=== PATIENT | male | born 1975 | race Caucasian/White ===

== ENCOUNTER 2017-11-09 16:19 | Emergency (ER) | payer BC ==
--- NOTE | 2017-11-09 16:36 | PDOC ---
History of Present Illness - General History Source: Patient Exam Limitations: No Limitations - History of Present Illness Initial Comments: 11/09/17 16:36 The patient is a 42 year old male with no significant past medical history who presents to the ED s/p finger laceration earlier today. The patient reports he cut his first left digit with a knife this morning while making omelettes. He states he had to attend a earlier today so he applied super glue to the site of the laceration. Patient states his left first digit injury bled through the glue so he removed the glue and came into the ED. Denies focal numbness, weakness, or tingling. Denies any other symptoms. <Barbara Rivero - Last Filed: 11/09/17 16:36> <Angelica Ruvalcaba - Last Filed: 11/09/17 17:04> - General Chief Complaint: Injury Stated Complaint: LEFT THUMB INJURY Time Seen by Provider: 11/09/17 16:31 Past History <Barbara Rivero - Last Filed: 11/09/17 16:36> <Angelica Ruvalcaba - Last Filed: 11/09/17 17:04> - Past Medical History Allergies/Adverse Reactions: Allergies Allergy/AdvReac Type Severity Reaction Status Date / Time No Known Allergies Allergy Verified 11/09/17 16:20 Home Medications: Ambulatory Orders Cephalexin Monohydrate [Keflex -] 500 mg PO Q6H #28 capsule 11/09/17 Review of Systems - Review of Systems Able to Perform ROS?: Yes Comments:: 11/09/17 16:36 GENERAL/CONSTITUTIONAL: No fever or chills. No weakness. CARDIOVASCULAR: No chest pain or shortness of breath. RESPIRATORY: No cough, wheezing, or hemoptysis. GASTROINTESTINAL: No nausea, vomiting, diarrhea or constipation. GENITOURINARY: No dysuria, frequency, or change in urination. MUSCULOSKELETAL: No joint or muscle swelling or pain. No neck or back pain. SKIN: + finger injury. No rash NEUROLOGIC: No headache, vertigo, loss of consciousness, or change in strength/ sensation. All Other Systems: Reviewed and Negative <Barbara Rivero - Last Filed: 11/09/17 16:36> *Physical Exam - Physical Exam Comments: GENERAL: Awake, alert, and fully oriented, in no acute distress HEAD: No signs of trauma EXTREMITIES: L thumb with semi-circular laceration to the tip of the finger, + devitalized tissue. Remainder of extremities with normal range of motion, no edema. No clubbing or cyanosis. No cords, erythema, or tenderness NEUROLOGICAL: Cranial nerves II through XII grossly intact. Normal speech, normal gait SKIN: Warm, Dry, normal turgor, no rashes or lesions noted. <Angelica Ruvalcaba - Last Filed: 11/09/17 17:04> Procedures - Laceration/Wound Repair Left Finger 1st digit Wound Length: to 2.5 cm Wound Explored: foreign body removed (removed superglue) Wound's Depth, Shape: superficial, flap Irrigated w/ Saline: Yes Betadine Prep: Yes Anesthesia: 1% Lidocaine Amount of Anesthetic (ccs): 3 Wound Debrided: moderate (removed glue from finger, it was not present in the wound) Wound Repaired With: Sutures, Dermabond Suture Size/Type: 5:0 Number of Sutures: 4 Layer Closure: No Sterile Dressing Applied: Yes Progress: 11/09/17 17:03 Sutures placed in the portion of the wound that was away from the nail. Small edge of the wound ran along the nailbed, repaired with dermabond, as it was not deep and would cause more harm to disrupt the nail by placing sutures through it. <Angelica Ruvalcaba - Last Filed: 11/09/17 17:04> *DC/Admit/Observation/Transfer - Attestations Scribe Attestion: 11/09/17 16:36 Documentation prepared by Barbara Rivero, acting as bio medical technician for Angelica Ruvalcaba MD <Barbara Rivero - Last Filed: 11/09/17 16:36> - Discharge Dispostion Admit: No <Angelica Ruvalcaba - Last Filed: 11/09/17 17:04> Diagnosis at time of Disposition: Hand laceration Qualifiers: Encounter type: initial encounter Foreign body presence: without foreign body Laterality: left Qualified Code(s): S61.412A - Laceration without foreign body of left hand, initial encounter - Discharge Dispostion Disposition: HOME Condition at time of disposition: Stable - Prescriptions Prescriptions: Cephalexin Monohydrate [Keflex -] 500 mg PO Q6H #28 capsule - Patient Instructions Printed Discharge Instructions: DI for Laceration Repair -- Finger Additional Instructions: Keep sutures dry for 48 hours. Do not disturb the wound glue. Do not apply any lotions, creams, or soaps, as they can disturb the sutures and glue. Return to the ER between 11/18-11/20 to have sutures removed. Return immediately for redness, swelling, drainage of pus, or any other concerning symptoms.
[2017-11-09] MEDS ORDERED: DIPHTH,PERTUSS(ACELL),TET 0.5 ML DISP.SYRIN IM ONE (16:37)
[2017-11-09 17:16] VITALS: BP 109/71; PULSE 77; TEMP 98.5; BMI 27.3
== END 2017-11-09 17:51 | disposition home or self-care (01) ==
LOC: EDSEX → FER 16:19
PROC: 0HQGXZZ Repair Left Hand Skin, External Approach (ICD-10-PCS; principal; 2017-11-09)
DX: S61.012A Laceration without foreign body of left thumb without damage to nail, initial encounter (principal); W26.0XXA Contact with knife, initial encounter; Y93.G1 Activity, food preparation and clean up; Y92.000 Kitchen of unspecified non-institutional (private) residence as the place of occurrence of the external cause
CPT/HCPCS: 99282-25